=== PATIENT | female | born 1995 | race Caucasian/White ===

== ENCOUNTER 2016-08-16 10:44 | Emergency (ER) | payer OTHER ==
[2016-08-16 11:05] VITALS: BP 125/65; PULSE 73; TEMP 98.1; BMI 25.1
[2016-08-16] MEDS ORDERED: DIPHTH,PERTUSS(ACELL),TET 0.5 ML DISP.SYRIN IM ONE (11:54)
--- NOTE | 2016-08-16 11:57 | PDOC ---
History of Present Illness - General Chief Complaint: Laceration Stated Complaint: LACERATION TO RT EYEBROW Time Seen by Provider: 08/16/16 11:24 - History of Present Illness Initial Comments: 08/16/16 11:54 CHIEF COMPLAINT: lac to eyebrow HISTORY OF PRESENT ILLNESS: 21 yo F with no PMH presents to fast track with laceration to R eyebrow. Patient states a can fell on her head from a cupboard. She denies any LOC or vomiting. Patient does not remember the last time she had a tetanus shot. PAST MEDICAL HISTORY: Denies past medical history FAMILY HISTORY: Denies SOCIAL HISTORY: Denies tobacco, alcohol, illicit drug use. SURGICAL HISTORY: Denies ALLERGIES: No known drug allergies REVIEW OF SYSTEMS General/Constitutional: Denies fever or chills. Denies weakness, weight change. HEENT: Denies change in vision. Denies ear pain or discharge. Denies sore throat. Cardiovascular: Denies chest pain or shortness of breath. Respiratory: Denies cough, wheezing, or hemoptysis. Gastrointestinal: Denies nausea, vomiting, diarrhea or constipation. Denies rectal bleeding. Genitourinary: Denies dysuria, frequency, or change in urination. Musculoskeletal: Denies joint or muscle swelling or pain. Denies neck or back pain. Skin and breasts: Lac to R forehead. Denies rash or easy bruising. PHYSICAL EXAM General Appearance: Well-appearing, appropriately dressed. No apparent distress , no intoxication. HEENT: EOMI, PERRLA, normal ENT inspection. No conjunctival pallor. No photophobia, scleral icterus. Respiratory/Chest: Lungs CTAB. Cardiovascular: RRR. S1, S2. Lymphatic: No adenopathy, tenderness. Musculoskeletal/Extremities: Normal inspection. FROM of all extremities, normal capillary refill. Pelvis Stable. No CVA tenderness. No tenderness to extremities, pedal edema, swelling, erythema or deformity. Integumentary: 2 cm lac to R forehed. Appropriate color, dry, warm. No cyanosis , erythema, jaundice or rash Neurologic: marketing coordinator II-XII intact. Fully oriented, alert. Appropriate mood/affect. Motor strength 5/5. No appreciable EOM palsy, facial droop or sensory deficit. Past History - Past Medical History Allergies/Adverse Reactions: Allergies Allergy/AdvReac Type Severity Reaction Status Date / Time No Known Allergies Allergy Verified 08/16/16 11:02 Home Medications: Ambulatory Orders NK [No Known Home Medication] 08/16/16 Anemia: Yes - Psycho/Social/Smoking Cessation Hx Suicidal Ideation: No Smoking History: Never smoked *Physical Exam - Vital Signs Last Vital Signs Temp Pulse Resp BP Pulse Ox 98.1 F 73 19 125/65 99 08/16/16 11:02 08/16/16 11:02 08/16/16 11:02 08/16/16 11:02 08/16/16 11:02 Procedures - Consent Consent obtained: Verbal - Laceration/Wound Repair Right Lateral Frontal Wound Length: to 2.5 cm Wound Explored: clean Wound's Depth, Shape: linear Irrigated w/ Saline: Yes Betadine Prep: Yes Anesthesia: 1% Lidocaine Amount of Anesthetic (ccs): 3 Wound Repaired With: Sutures Suture Size/Type: 6:0 Number of Sutures: 3 Sterile Dressing Applied: Yes (bacitracin, bandaid) *DC/Admit/Observation/Transfer Diagnosis at time of Disposition: Laceration of eyebrow Qualifiers: Encounter type: initial encounter Laterality: right Qualified Code(s): S01.111A - Laceration without foreign body of right eyelid and periocular area, initial encounter - Discharge Dispostion Disposition: HOME Condition at time of disposition: Stable Admit: No - Referrals Referrals: Mary Ann Rodriguez MD [Primary Care Provider] - - Patient Instructions Printed Discharge Instructions: DI for Laceration Repair Additional Instructions: Please keep the area of laceration repair clean and dry for the next 24 hours; afterwards you may wash with mild soap and water. Please return in 5 days for suture removal. If you experience any redness, warmth, swelling, or streaking from the site of injury or you develop any fever, nausea, vomiting or any new or worsening symptoms, please return to the ER.
== END 2016-08-16 12:06 | disposition home or self-care (01) ==
LOC: JERFT 10:44
PROC: 0HQ1XZZ Repair Face Skin, External Approach (ICD-10-PCS; principal; 2016-08-16)
PROC: 3E0234Z Introduction of Serum, Toxoid and Vaccine into Muscle, Percutaneous Approach (ICD-10-PCS; 2016-08-16)
DX: S01.111A Laceration without foreign body of right eyelid and periocular area, initial encounter (principal); W20.8XXA Other cause of strike by thrown, projected or falling object, initial encounter; Y93.9 Activity, unspecified; Y92.9 Unspecified place or not applicable
CPT/HCPCS: 12011-25; 90471; 90715; 99282-25

== ENCOUNTER 2016-08-21 12:29 | Emergency (ER) | payer OTHER ==
[2016-08-21 12:34] VITALS: BP 123/63; PULSE 64; TEMP 97.6; BMI 21.7
--- NOTE | 2016-08-21 12:57 | PDOC ---
Suture Removal/Wound Check HPI - History of Present Illness Chief Complaint: Suture/Staple Removal (other) Stated Complaint: STAPLLEREMOVAL Time Seen by Provider: 08/21/16 12:42 History Source: Yes: Patient Exam Limitations: Yes: No Limitations Treated at: [facility] ED Date of Last ED visit: 08/16/16 - Previous ED Treatment Type of procedure performed on last visit: Yes: Laceration Repair Tetanus Immunization: Yes: Given at last ED visit Antibiotics Prescribed: No Past History - Past Medical History Allergies/Adverse Reactions: Allergies No Known Allergies Allergy (Verified 08/21/16 12:30) Home Medications: Ambulatory Orders NK [No Known Home Medication] 08/16/16 General: Yes: no pertinent history - Immunization History Tetanus Status: Unknown - Social History Smoking Status: Never smoked Suture Removal/Wound Check PE - Physical Exam Laceration/Wound Check Symptoms: reports: None Comments: 08/21/16 13:27 Rt. lateral eyebrow patient was seen here on 08/16/2016, here for suture removal. Current Severity Level: None Maximum Severity Level: None Location of Laceration/Wound: right: Face (rt. lateral eyebrow area) *Review of Systems - Review of Systems Able to Perform ROS?: Yes Integumentary: Yes: Other (3 sutures rt. lateral eyebrow area) Procedures - Consent Consent obtained: From Patient - Additional Procedures Progress: 08/21/16 13:28 Removed 3 interrupted sutures from right eyebrow area wound edges well approximated no signs of infection area cleansed with Betadine and normal saline 0.9% Medical Decision Making - Medical Decision Making 08/21/16 13:29 suture removal right lateral eyebrow area *DC/Admit/Observation/Transfer Diagnosis at time of Disposition: Visit for suture removal - Discharge Dispostion Disposition: HOME Condition at time of disposition: Stable - Patient Instructions Additional Instructions: Continue to cleanse wound with antibacterial soap and water pat dry and apply bacitracin ointment twice daily until scab falls off Patient voiced understanding of discharge instructions and all questions were answered
== END 2016-08-21 13:34 | disposition home or self-care (01) ==
LOC: JERFT 12:29
DX: Z48.02 Encounter for removal of sutures (principal)
CPT/HCPCS: 99281-25

== ENCOUNTER 2017-04-15 20:43 | Emergency (ER) | payer OTHER ==
[2017-04-15 20:48] VITALS: BMI 25.9
--- NOTE | 2017-04-15 21:08 | PDOC ---
*Physical Exam - Vital Signs Last Vital Signs Temp Pulse Resp BP Pulse Ox 98.9 F 90 18 118/74 100 04/15/17 20:44 04/15/17 20:44 04/15/17 20:44 04/15/17 20:44 04/15/17 20:44 Medical Decision Making - Medical Decision Making 04/15/17 21:07 21y F 9weeks gestation presenting nausae/vomiting for 3 weeks. pt staets she went to an outside hospital for the sme complaint and she was given zofran, she stestes it does help when she uses it, but she only has 2 left (she only was given 4 pills). pt adriana kavinелена bbdominal pain, fever/chills, back pain, dysuria, diarrhea, melena, cough, cp, sob. on exam the pt appears well, abd is soft nontender. will give antiemetic, fluids will ck ua, labs suspect mild hyperemeiss gravidarum will reassess anticipate dc with program engineer fu *DC/Admit/Observation/Transfer - Referrals Referrals: Angelita Felix MD [Primary Care Provider] - - Patient Instructions - Post Discharge Activity
[2017-04-15] MEDS ORDERED: SODIUM CHLORIDE 1,000 ML IV STA (21:14)
--- NOTE | 2017-04-15 21:14 | PDOC ---
History of Present Illness - General Chief Complaint: Vomiting Blood Stated Complaint: VOMITING Time Seen by Provider: 04/15/17 20:57 History Source: Patient Exam Limitations: No Limitations - History of Present Illness Initial Comments: 04/15/17 21:18 Jill is a 21 yo female with PMH GERD and anemia presenting at 9 weeks gestation with dizziness, nausea and vomiting for 4 days. She reports that she had reflux and vomiting earlier in her and was given pepcid and zofran. However, she has been unable to keep down the medications as well as food and water for the past 4 days. She reports that the vomit was tinged with blood today and she had one episode of blood in her urine without painful urination. She denies fever, [place], SOB, angina, abdominal pain, vaginal bleeding/ discharge, edema, calf swelling/tenderness, dysuria. She is taking vitamins, denies alcohol, tobacco, recent medication use. Timing/Duration: other (4 days) Severity: mild Modifying Factors: worse with: eating, other (smelling food worsens N/V) Associated Symptoms: reports: nausea/vomiting. denies: chest pain, fever/chills , headaches, shortness of breath Aspirin Received prior to arrival: Yes: no aspirin today Beta Sam Contraindications(Core Measure): Yes: Not Prescribed Past History - Past Medical History Allergies/Adverse Reactions: Allergies Allergy/AdvReac Type Severity Reaction Status Date / Time No Known Allergies Allergy Verified 04/15/17 20:49 Home Medications: Ambulatory Orders Calcium Carbonate [Tums] 200 mg PO TID #30 tab.chew 04/16/17 Nitrofurantoin Monohyd/M-Cryst [Macrobid -] 100 mg PO BID #14 capsule 04/16/17 Ondansetron [Zofran Odt -] 4 mg SL TID #10 od.tablet 04/16/17 Anemia: Yes COPD: No - Reproductive History Is Patient Now?: Yes (9 weeks gestation) (#): 1 Para: 0 - Suicide/Smoking/Psychosocial Hx Smoking History: Never smoked Have you smoked in the past 12 months: No Information on smoking cessation initiated: No Hx Alcohol Use: No Drug/Substance Use Hx: No Substance Use Type: None Review of Systems - Review of Systems Constitutional: No: Chills, Fever, Loss of Appetite HEENTM: Yes: Other (reflux) Respiratory: No: Cough, Orthopnea, Shortness of Breath Cardiac (ROS): Yes: Lightheadedness. No: Chest Pain, Edema, Palpitations ABD/GI: Yes: Nausea, Poor Fluid Intake, Vomiting. No: Diarrhea, Abdominal cramping : Yes: Hematuria, Incontinence (1 episode today). No: Burning, Dysuria, Discharge, Flank Pain, Pain Neurological: Yes: Dizziness. No: Headache *Physical Exam - Vital Signs Last Vital Signs Temp Pulse Resp BP Pulse Ox 98.9 F 90 18 118/74 100 04/15/17 20:44 04/15/17 20:44 04/15/17 20:44 04/15/17 20:44 04/15/17 20:44 - Physical Exam General Appearance: Yes: Nourished, Appropriately Dressed, Other (Laying comfortably in exam bed, AAOx3. Not using accessory muscles to breath). No: Apparent Distress HEENT: positive: Normal ENT Inspection Neck: positive: Trachea midline. negative: Stridor Respiratory/Chest: positive: Lungs Clear, Normal Breath Sounds. negative: Chest Tender, Respiratory Distress, Accessory Muscle Use, Labored Respiration, Crackles, Rales, Rhonchi, Stridor, Wheezing Cardiovascular: positive: Regular Rhythm, Regular Rate, S1, S2 (present). negative: Edema, Murmur Gastrointestinal/Abdominal: positive: Normal Bowel Sounds, Flat, Soft. negative : Tender, Pulsatile Mass, Distended, Guarding, Tenderness, Mass Musculoskeletal: negative: CVA Tenderness (L) Extremity: positive: Normal Capillary Refill, Normal Inspection, Normal Range of Motion. negative: Swelling, Calf Tenderness Integumentary: positive: Normal Color, Dry, Warm. negative: Cold Neurologic: positive: management associate II-XII NML intact, Fully Oriented, Alert, Normal Mood/ Affect, Normal Response, Motor Strength 5/5. negative: Sensory Deficit ED Treatment Course - LABORATORY CBC & Chemistry Diagram: 04/15/17 21:40 04/15/17 21:40 Medical Decision Making - Medical Decision Making 04/15/17 23:01 Pt. is a 21 y/o F , approximately 9 weeks preganant (LMP 02/07/17) who presents to the ED with n/v 04/16/17 00:53 Transvaginal ultrasound shows a single IUP, heart rate of 138. Left and right ovaries appear normal. We will discharge home at this time. Patient reports relief of her nausea still admits to some burning however explained that this could take a little while to resolve itself. Patient instructed to use Tums at home. She may also use Zofran as needed for nausea and vomiting. Referral for PHOTOGRAPHER SCIENTIFIC given. Given hematuria in the urine and white blood cells present in the urine we'll treat for asymptomatic bacteriuria at this time. 04/16/17 07:00 *DC/Admit/Observation/Transfer Diagnosis at time of Disposition: Hyperemesis - Discharge Dispostion Disposition: HOME Condition at time of disposition: Good Admit: No - Prescriptions Prescriptions: Calcium Carbonate [Tums] 200 mg PO TID #30 tab.chew Nitrofurantoin Monohyd/M-Cryst [Macrobid -] 100 mg PO BID #14 capsule Ondansetron [Zofran Odt -] 4 mg SL TID #10 od.tablet - Referrals Referrals: Angelita Felix MD [Primary Care Provider] - Carlene Arndt MD [Staff Physician] - - Patient Instructions Printed Discharge Instructions: DI for Hyperemesis Gravidarum Additional Instructions: Your lab work was normal today. Your ultrasound showed a single live with a heart rate of 138. Your prescribed Zofran as needed for your nausea. Please take Tums as needed for acid reflux. Please make an appointment with an PHOTOGRAPHER SCIENTIFIC for further management of your and symptoms related to your . A referral has been provided for you. Your also being treated for a presumed urinary tract infection. Please take the antibiotics as prescribed. Drink plenty of fluids. Return to the emergency department if you have worsening nausea, vomiting, lightheadedness, dizziness or any changes in your symptoms. - Post Discharge Activity
[2017-04-15] MEDS ORDERED: METOCLOPRAMIDE HCL INJECTION 10 MG/2 ML VIAL IVPB ONE (21:16)
[2017-04-15] MEDS ORDERED: FAMOTIDINE IV 20 MG/12 ML VIAL IVPB ONE (21:16)
[2017-04-15] MEDS ORDERED: METOCLOPRAMIDE HCL INJECTION 10 MG/2 ML VIAL ONE (21:43)
[2017-04-15] MEDS ORDERED: FAMOTIDINE 20 MG/50 ML IVPB 20 MG/50 ML MG IVPB ONE (21:43)
[2017-04-15 21:47] LABS: BASO % 0.4 % (0-2.0); EOS % 0.4 % (0-4.5); HEMATOCRIT 39.8 % (32.4-45.2); HEMOGLOBIN 13.2 GM/dL (10.7-15.3); LYMPH % 16.7 % (8-40); MCH 28.2 pg (25.7-33.7); MCHC 33.1 g/dl (32.0-36.0); MEAN CELL VOLUME 85.4 fl (80-96); MEAN PLT VOLUME 9.8 fl (7.5-11.1); MONO % 6.4 % (3.8-10.2); NEUT % 76.1 % (42.8-82.8); PLATELET COUNT 195 K/MM3 (134-434); RBC 4.66 M/mm3 (3.60-5.2); RDW 12.5 % (11.6-15.6); WHITE BLOOD COUNT 8.7 K/mm3 (4.0-10.0)
[2017-04-15 21:48] LABS: URINE APPEARANCE CLOUDY; URINE BILIRUBIN NEGATIVE (NEGATIVE); URINE BLOOD NEGATIVE (NEGATIVE); URINE COLOR AMBER; URINE GLUCOSE (UA) 1+ (NEGATIVE); URINE KETONE 2+ (NEGATIVE); URINE LEUK ESTERASE TRACE (NEGATIVE); URINE NITRITE NEGATIVE (NEGATIVE)
[2017-04-15 21:49] LABS: URINE PROTEIN 1+ (NEGATIVE)
[2017-04-15 21:51] LABS: EPI CELLS RARE /HPF (FEW); URINE BACTERIA RARE /hpf (NONE SEEN); URINE HYALINE CAST 5 /lpf; URINE MUCUS MANY
[2017-04-15 22:15] LABS: ALBUMIN 4.1 g/dl (3.4-5.0); ANION GAP 9 (8-16); BILIRUBIN,TOTAL 0.4 mg/dL (0.2-1.0); BLOOD UREA NITROGEN 10 mg/dL (7-18); CALCIUM 8.9 mg/dL (8.5-10.1); CHLORIDE 104 mmol/L (98-107); CO2 24 mmol/L (21-32); CREATININE 0.6 mg/dL (0.55-1.02); GLUCOSE,RANDOM 90 mg/dL (74-106); POTASSIUM 3.8 mmol/L (3.5-5.1); SGOT/AST 17 U/L (15-37); SGPT/ALT 40 U/L (12-78); SODIUM 137 mmol/L (136-145); TOT PROT 7.7 g/dl (6.4-8.2)
[2017-04-15 22:18] LABS: ALK PHOS 78 U/L (45-117)
[2017-04-16 01:20] VITALS: BP 117/69; PULSE 79; TEMP 98.4
== END 2017-04-16 01:20 | disposition home or self-care (01) ==
LOC: JER 20:43
PROC: 3E033GC Introduction of Other Therapeutic Substance into Peripheral Vein, Percutaneous Approach (ICD-10-PCS; principal; 2017-04-15)
PROC: 3E033GC Introduction of Other Therapeutic Substance into Peripheral Vein, Percutaneous Approach (ICD-10-PCS; 2017-04-15)
PROC: 3E033GC Introduction of Other Therapeutic Substance into Peripheral Vein, Percutaneous Approach (ICD-10-PCS; 2017-04-15)
DX: O26.891 Other specified pregnancy related conditions, first trimester (principal); O21.0 Mild hyperemesis gravidarum; Z3A.09 9 weeks gestation of pregnancy
CPT/HCPCS: 36415; 76817-TC; 80053; 81003; 81015; 84702; 85025; 86850; 86900; 86901; 87086; 96374; 96375; 99282-25

== ENCOUNTER 2017-11-08 13:09 | Inpatient (IN) | payer OTHER ==
[2017-11-08] MEDS ORDERED: CITRIC ACID/SODIUM CITRATE 30 ML UNIT-DOSE CUP PO ONE (13:25)
[2017-11-08] MEDS ORDERED: ELECTROLYTE-148 SOLN 1,000 ML IV SCH ×2 (13:25→13:55)
[2017-11-08 14:15] LABS: ALK PHOS 183 U/L (45-117); ANION GAP 13 (8-16); BILIRUBIN,TOTAL 0.3 mg/dL (0.2-1.0); BLOOD UREA NITROGEN 6 mg/dL (7-18); CALCIUM 8.8 mg/dL (8.5-10.1); CHLORIDE 105 mmol/L (98-107); CO2 20 mmol/L (21-32); CREATININE 0.5 mg/dL (0.55-1.02); GLUCOSE,RANDOM 71 mg/dL (74-106); POTASSIUM 3.9 mmol/L (3.5-5.1); SGOT/AST 16 U/L (15-37); SGPT/ALT 15 U/L (12-78); SODIUM 138 mmol/L (136-145); TOT PROT 6.6 g/dl (6.4-8.2)
[2017-11-08 14:22] VITALS: BMI 31.1
[2017-11-08] MEDS ORDERED: OXYTOCIN 20 UNITS in 0.9% NS 20 UNIT/1,000 ML INFUS.BAG IV ONE (15:08)
--- NOTE | 2017-11-08 15:09 | HP ---
Past Medical History - Primary Care Physician PCP:: Hunter Giron - Admission Chief Complaint: 39 weeks, hx of pelvic fx History of Present Illness: 22 yo f 39 weeks, with hx of pelvic fracture admitted for c/s , risks of c /s has discussed with patient, cx clp , vx -3 mi, fhr cat 1, no contraction History Source: Patient Limitations to Obtaining History: Language Barrier - Past Medical History ...: 1 ...Para: 0 ...Term: 0 ...: 0 ...Spon : 0 ...Induced : 0 ...Multiple Gestation: 0 ...LMP: 02/07/17 ... Weeks Gestation by Dates: 39.1 ...EDC by Dates: 11/14/17 ...EDC by Sono: 11/21/17 - Past Surgical History Hx Myomectomy: No Hx Transabdominal Cerclage: No - Smoking History Smoking history: Never smoked Have you smoked in the past 12 months: No - Alcohol/Substance Use Hx Alcohol Use: No - Social History Usual Living Arrangement: Yes: With Spouse History of Recent Travel: No Home Medications - Allergies Allergies/Adverse Reactions: Allergies Allergy/AdvReac Type Severity Reaction Status Date / Time No Known Allergies Allergy Verified 11/08/17 13:31 - Home Medications Home Medications: Ambulatory Orders Ferrous Sulfate 325 mg PO BID 11/08/17 Pnv No.95/Ferrous Fum/Folic AC [ Vitamin Tablet] 1 each PO DAILY Review of Systems - Review of Systems Constitutional: reports: No Symptoms Eyes: reports: No Symptoms, Floaters Neck: reports: No Symptoms Cardiovascular: reports: No Symptoms Respiratory: reports: No Symptoms Gastrointestinal: reports: No Symptoms Genitourinary: reports: No Symptoms Breasts: reports: No Symptoms Reported Musculoskeletal: reports: Back Pain, Extremity Pain Integumentary: reports: No Symptoms Neurological: reports: No Symptoms Endocrine: reports: No Symptoms Hematology/Lymphatic: reports: No Symptoms Psychiatric: reports: No Symptoms Physical Exam - Maternity Vital Signs: Vital Signs Temperature 98.0 F 11/08/17 13:09 Pulse Rate 94 H 11/08/17 13:09 Respiratory Rate 18 11/08/17 13:09 Blood Pressure 109/63 11/08/17 13:09 O2 Sat by Pulse Oximetry (%) Constitutional: Yes: Well Nourished, No Distress, Calm Eyes: Yes: WNL, Conjunctiva Clear, EOM Intact HENT: Yes: WNL, Atraumatic, Normocephalic Neck: Yes: WNL, Supple, Trachea Midline Cardiovascular: Yes: WNL, Regular Rate and Rhythm Breast(s): Yes: WNL - Abdominal Exam/OB Fundal Height: 40 Number of Fetuses: Single Presentation: Vertex Contractions: No Regularity: Irritability Intensity: Unaware Monitor Mode: External Heart Rate Location: [facility] Category: I Accelerations: Uniform Decelerations: None - Vaginal Exam/OB Vaginal Bleediing: No Speculum Exam: No Dilatation (cm): closed Effacement (%): o Amniotic Membrane Status: Intact Presentation: Vertex/Position Station: -3 - Physical Exam Musculoskeletal: Yes: Back Pain Extremities: Yes: WNL Edema: Yes Edema: LLE: 1+, RLE: 1+ ...Motor Strength: WNL Psychiatric: Yes: WNL - Labs Lab Results: CBC, BMP 11/08/17 13:20 Hemorrhage Risk Assessment - Risk Factors Medium Risk Factors: Yes: None High Risk Factors: Yes: None Risk Score: 1 Risk Level: Medium Risk Problem List - Problems (1) with 39 completed weeks gestation Code(s): Z3A.39 - 39 WEEKS GESTATION OF (2) Pelvic fracture Code(s): S32.9XXA - FRACTURE OF UNSP PARTS OF LUMBOSACRAL SPINE AND PELVIS, INIT Qualifiers: Sublocation of pubis: other portion of pubis Fracture type: open Assessment/Plan c/s rba discussed
[2017-11-08] MEDS ORDERED: BUPIVACAINE 0.75% IN DEXTROSE/PF 2ML AMPULE NR ONE (15:17)
[2017-11-08] MEDS ORDERED: morphine SULFATE/Preservative Free 0.5 MG/ML (1cc Syringe) ONE (15:17)
[2017-11-08] MEDS ORDERED: OXYTOCIN 10 UNITS/ML VIAL ONE (15:40)
[2017-11-08] MEDS ORDERED: KETOROLAC TROMETHAMINE 30 MG/1 ML VIAL ONE (15:57)
[2017-11-08] MEDS ORDERED: PHENYLEPHRINE HCL 10 MG/1 ML SINGLE DOSE VIAL ONE (15:57)
[2017-11-08] MEDS ORDERED: METHYLERGONOVINE MALEATE 0.2 MG/1 ML AMP IM PRN (16:18)
[2017-11-08] MEDS ORDERED: WITCH HAZEL 50% (TUCKS) 40 PAD/JAR PAD TP PRN (16:18)
[2017-11-08] MEDS ORDERED: oxyCODONE HCL 5 MG TABLET PO PRN (16:18)
[2017-11-08] MEDS ORDERED: BENZOCAINE 20% 57 GM BOTTLE TP PRN (16:18)
[2017-11-08] MEDS ORDERED: BENZOCAINE 28 GM HEMORRHOIDAL OINTMENT PR PRN (16:18)
[2017-11-08] MEDS ORDERED: diphenhydrAMINE HCL 25 MG CAPSULE (FP) PO PRN (16:18)
[2017-11-08] MEDS ORDERED: IBUPROFEN 800 MG/8 ML IJ IVPB PRN (16:18)
[2017-11-08] MEDS ORDERED: ONDANSETRON 4 MG/2 ML VIAL IVPUSH PRN (16:28)
[2017-11-08] MEDS ORDERED: DEXTROSE 5%-LACTATED RINGERS 1,000 ML IV SCH (16:30)
[2017-11-08] MEDS ORDERED: OXYTOCIN 20 UNITS in 0.9% NS 20 UNIT/1,000 ML INFUS.BAG IV SCH (16:30)
[2017-11-08] MEDS ORDERED: CEFAZOLIN 1 GM in DEXTROSE 5%-WATER - 50 ML IVPB SCH (18:00)
[2017-11-08] MEDS ORDERED: DEXTROSE 5%-WATER - 50 ML IVPB ONE (23:44)
[2017-11-08] MEDS ORDERED: ceFAZolin SODIUM 1 GM VIAL ONE (23:44)
[2017-11-08] MEDS: CEFAZOLIN 1 GM in DEXTROSE 5%-WATER - 50 ML IVPB SCH (23:47)
[2017-11-09] MEDS ORDERED: ceFAZolin SODIUM 1 GM VIAL ONE (07:40)
[2017-11-09] MEDS ORDERED: DEXTROSE 5%-WATER - 50 ML IVPB ONE (07:40)
[2017-11-09] MEDS: CEFAZOLIN 1 GM in DEXTROSE 5%-WATER - 50 ML IVPB SCH (07:45)
[2017-11-09 07:55] LABS: BASO % 0.4 % (0-2.0); EOS % 0.8 % (0-4.5); HEMATOCRIT 37.4 % (32.4-45.2); HEMOGLOBIN 12.5 GM/dL (10.7-15.3); LYMPH % 11.8 % (8-40); MCH 31.5 pg (25.7-33.7); MCHC 33.4 g/dl (32.0-36.0); MEAN CELL VOLUME 94.4 fl (80-96); MEAN PLT VOLUME 9.3 fl (7.5-11.1); MONO % 8.9 % (3.8-10.2); NEUT % 78.1 % (42.8-82.8); PLATELET COUNT 186 K/MM3 (134-434); RBC 3.96 M/mm3 (3.60-5.2); RDW 13.4 % (11.6-15.6); WHITE BLOOD COUNT 10.9 K/mm3 (4.0-10.0)
--- NOTE | 2017-11-09 08:33 | PN ---
Progress Note (short form) - Note Progress Note: pod 1 no c/o, no excess vaginal bleeding CBC, BMP 11/09/17 07:00 11/08/17 13:20 Last Vital Signs Temp Pulse Resp BP Pulse Ox 98.4 F 64 20 108/72 99 11/09/17 06:00 11/09/17 06:00 11/09/17 07:00 11/09/17 06:00 11/08/17 17:46 abdomen soft, no distension, no cva incision dry, clean no calf tenderness plan ambualte, advance diet Problem List - Problems (1) with 39 completed weeks gestation Code(s): Z3A.39 - 39 WEEKS GESTATION OF (2) Pelvic fracture Code(s): S32.9XXA - FRACTURE OF UNSP PARTS OF LUMBOSACRAL SPINE AND PELVIS, INIT Qualifiers: Sublocation of pubis: other portion of pubis Fracture type: open
[2017-11-09] MEDS: IBUPROFEN 600 MG TABLET (FP) PO PRN ×3 (09:17→20:17)
[2017-11-09] MEDS: SIMETHICONE 80 MG TAB.CHEW (FP) PO PRN ×3 (09:17→20:16)
[2017-11-09] MEDS: ENOXAPARIN NA (PORCINE) 40 MG/0.4 ML DISP.SYRIN SQ SCH (09:18)
[2017-11-09] MEDS: ACETAMINOPHEN 325 MG TABLET (FP) PO PRN ×3 (09:18→20:16)
--- NOTE | 2017-11-09 11:51 | PN ---
Progress Note (short form) - Note Progress Note: Anesthesia POD#1 S/P under spinal anesthesia with Duramorph VSS,out of bed to chair,no N/V,pain is under control. No weakness in extremities. Selena Rock MD.
[2017-11-09] MEDS ORDERED: BISACODYL 10 MG SUPP.RECT RC PRN (16:19)
[2017-11-10] MEDS: ACETAMINOPHEN 325 MG TABLET (FP) PO PRN (05:42)
[2017-11-10] MEDS: SIMETHICONE 80 MG TAB.CHEW (FP) PO PRN ×3 (05:43→22:38)
[2017-11-10] MEDS: IBUPROFEN 600 MG TABLET (FP) PO PRN ×3 (05:43→22:39)
--- NOTE | 2017-11-10 07:30 | PN ---
Post Progress Note - Subjective Subjective: c/o pain scale 4/10 voiding without difficulty bm not done yet Post Day: 2 Type of Delivery: Primary C/S Vital Signs: Vital Signs Temperature 98.5 F 11/09/17 22:00 Pulse Rate 74 11/09/17 22:00 Respiratory Rate 18 11/09/17 22:00 Blood Pressure 112/60 11/09/17 22:00 O2 Sat by Pulse Oximetry (%) 99 11/08/17 17:46 Breast Exam: Yes: Soft. No: Engorged Uterus: Yes: Fundus Firm, Fundus below umbilicus, Non-tender Incision: Yes: Dressing dry and intact (to be changed ). No: Redness, Oozing Abdomen/GI: Yes: Abdomen soft (bs active ), Passing flatus (bm not done ), Tolerating PO (diet ). No: Abdominal Distention, Tender Lochia: Yes: Rubra Lochia, amount: Moderate Extremities: Yes: Calves non-tender, Edema Perineum: Yes: Intact Activity: Ambulating - Labs Labs: CBC WBC 10.9 K/mm3 (4.0-10.0) H 11/09/17 07:00 RBC 3.96 M/mm3 (3.60-5.2) 11/09/17 07:00 Hgb 12.5 GM/dL (10.7-15.3) 11/09/17 07:00 Hct 37.4 % (32.4-45.2) 11/09/17 07:00 MCV 94.4 fl (80-96) 11/09/17 07:00 MCH 31.5 pg (25.7-33.7) 11/09/17 07:00 MCHC 33.4 g/dl (32.0-36.0) 11/09/17 07:00 RDW 13.4 % (11.6-15.6) 11/09/17 07:00 Plt Count 186 K/MM3 (134-434) 11/09/17 07:00 MPV 9.3 fl (7.5-11.1) 11/09/17 07:00 Absolute Neuts (auto) 8.5 # 11/09/17 07:00 Neutrophils % 78.1 % (42.8-82.8) 11/09/17 07:00 Lymphocytes % 11.8 % (8-40) D 11/09/17 07:00 Monocytes % 8.9 % (3.8-10.2) 11/09/17 07:00 Eosinophils % 0.8 % (0-4.5) 11/09/17 07:00 Basophils % 0.4 % (0-2.0) 11/09/17 07:00 Nucleated RBC % 0 % (0-0) 11/09/17 07:00 Problem List - Problems (1) delivery due to maternal disorder, delivered, curr hospitaliz Code(s): O82 - ENCOUNTER FOR DELIVERY WITHOUT INDICATION; O99.89 - OTH DISEASES AND CONDITIONS COMPL PREG/CHLDBRTH (2) Encounter for visit Code(s): Z39.2 - ENCOUNTER FOR ROUTINE FOLLOW-UP Assessment/Plan stable s/p primary c/s day#[address] po care rectal suppository today encourage ambulation , po fluids , deep breathing
[2017-11-10] MEDS: oxyCODONE HCL 5 MG TABLET PO PRN ×2 (09:35→22:38)
[2017-11-10] MEDS: ENOXAPARIN NA (PORCINE) 40 MG/0.4 ML DISP.SYRIN SQ SCH (09:35)
[2017-11-10] MEDS ORDERED: SENNOSIDES/DOCUSATE COMBO (SENNA PLUS) TABLET (UD) PO PRN (22:00)
[2017-11-11 07:54] LABS: BASO % 0.4 % (0-2.0); EOS % 1.9 % (0-4.5); HEMATOCRIT 35.3 % (32.4-45.2); LYMPH % 21.7 % (8-40); MCH 31.9 pg (25.7-33.7); MEAN PLT VOLUME 9.1 fl (7.5-11.1); MONO % 10.1 % (3.8-10.2); NEUT % 65.9 % (42.8-82.8); PLATELET COUNT 186 K/MM3 (134-434); RBC 3.76 M/mm3 (3.60-5.2); RDW 13.5 % (11.6-15.6); WHITE BLOOD COUNT 7.9 K/mm3 (4.0-10.0)
[2017-11-11] MEDS: oxyCODONE HCL 5 MG TABLET PO PRN (09:05)
[2017-11-11] MEDS: SIMETHICONE 80 MG TAB.CHEW (FP) PO PRN ×2 (09:05→20:05)
[2017-11-11] MEDS: ENOXAPARIN NA (PORCINE) 40 MG/0.4 ML DISP.SYRIN SQ SCH (09:06)
[2017-11-11] MEDS: IBUPROFEN 600 MG TABLET (FP) PO PRN ×2 (09:06→20:06)
--- NOTE | 2017-11-11 11:49 | PN ---
Post Progress Note - Subjective Subjective: 22 yo Para 1 status post primary , seen and evaluated. She's out of bed to chair. Doing well Post Day: 3 Type of Delivery: Primary C/S Vital Signs: Vital Signs Temperature 97.8 F 11/11/17 07:55 Pulse Rate 55 L 11/11/17 07:55 Respiratory Rate 20 11/11/17 07:55 Blood Pressure 120/79 11/11/17 07:55 O2 Sat by Pulse Oximetry (%) 99 11/08/17 17:46 Breast Exam: Yes: Soft Uterus: Yes: Fundus Firm Incision: Yes: [place] intact Abdomen/GI: Yes: Abdomen soft, Tolerating PO Lochia: Yes: Rubra Lochia, amount: Small Extremities: Yes: Calves non-tender Perineum: Yes: Intact Activity: Ambulating - Labs Labs: CBC WBC 7.9 K/mm3 (4.0-10.0) 11/11/17 06:30 RBC 3.76 M/mm3 (3.60-5.2) 11/11/17 06:30 Hgb 12.0 GM/dL (10.7-15.3) 11/11/17 06:30 Hct 35.3 % (32.4-45.2) 11/11/17 06:30 MCV 94.0 fl (80-96) 11/11/17 06:30 MCH 31.9 pg (25.7-33.7) 11/11/17 06:30 MCHC 34.0 g/dl (32.0-36.0) 11/11/17 06:30 RDW 13.5 % (11.6-15.6) 11/11/17 06:30 Plt Count 186 K/MM3 (134-434) 11/11/17 06:30 MPV 9.1 fl (7.5-11.1) 11/11/17 06:30 Absolute Neuts (auto) 5.2 # 11/11/17 06:30 Neutrophils % 65.9 % (42.8-82.8) 11/11/17 06:30 Lymphocytes % 21.7 % (8-40) D 11/11/17 06:30 Monocytes % 10.1 % (3.8-10.2) 11/11/17 06:30 Eosinophils % 1.9 % (0-4.5) D 11/11/17 06:30 Basophils % 0.4 % (0-2.0) 11/11/17 06:30 Nucleated RBC % 0 % (0-0) 11/11/17 06:30 Assessment/Plan Status post Stable Continue routine post op care
[2017-11-11] MEDS: ACETAMINOPHEN 325 MG TABLET (FP) PO PRN (20:05)
[2017-11-12] MEDS: ENOXAPARIN NA (PORCINE) 40 MG/0.4 ML DISP.SYRIN SQ SCH (09:13)
[2017-11-12 11:21] VITALS: BP 126/73; PULSE 57; TEMP 98
--- NOTE | 2017-11-12 12:38 | PATH ---
Surgical Pathology Report Patient Name: DEEPIKA BARR Med. Rec. #: [id number] /Age/Gender: 1995 (Age: 22) / F Account: [id number] Location: [facility] OBS/LAB COURIER Taken: 11/08/2017 Received: 11/09/2017 Reported: 11/12/2017 Physicians: Hunter Giron M.D. 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 Electronically Signed Alanna Springer M.D. Gross Description The specimen is received fresh labeled placenta and is a 454 gram, 14.0 x 14.0 x 3.3 cm. placenta with attached membranes and umbilical cord. The attached membranes are ibarra, translucent with focal opacities and insert marginally. The umbilical cord measures 35 cm. in length and averages 1 cm. in diameter. The cord inserts eccentrically, 5.5 cm. to the nearest margin. No true knots or strictures are identified. Cut surface of the umbilical cord reveals 3 vessels. The surface is romano-blue with minimal fibrin deposition and appropriate caliber vessels. The maternal surface is red-brown with focal defects. Sectioning reveals red-brown, spongy parenchyma. No lesions are identified. Sales Service Manager sections are submitted in three cassettes as follows: 1- membrane rolls and umbilical cord; 2-3- full thickness sections of placenta. /11/09/2017 [facility]/11/09/2017
--- NOTE | 2017-11-12 15:44 | DS ---
Physical Exam-FIBERGLASSER Vital Signs: Vital Signs Temperature 98 F 11/12/17 10:00 Pulse Rate 57 L 11/12/17 10:00 Respiratory Rate 20 11/12/17 10:00 Blood Pressure 126/73 11/12/17 10:00 O2 Sat by Pulse Oximetry (%) 99 11/08/17 17:46 Constitutional: Yes: Well Nourished Eyes: Yes: Conjunctiva Clear HENT: Yes: Atraumatic Neck: Yes: Supple Cardiovascular: Yes: Regular Rate and Rhythm Respiratory: Yes: Regular Gastrointestinal: Yes: Normal Bowel Sounds Cervix: Yes: Normal Uterus: Yes: Normal Breast(s): Yes: WNL Extremities: Yes: WNL Wound/Incision: Yes: Clean/Dry, Well Approximated, Holli Intact Neurological: Yes: Alert, Oriented ...Motor Strength: WNL Psychiatric: Yes: Alert, Oriented Labs: CBC, BMP 11/11/17 06:30 11/08/17 13:20 Delivery - Delivery Type of Anesthesia: Spinal Episiotomy/Laceration: None EBL (cc): 500 Delivery, Single - Stages of Labor Date of Delivery: 11/08/17 Time of Delivery: 15:45 Time Placenta Delivered: 15:46 - Condition of [place]/Proj Mgr Present: Yes Name: Coco Morrow Gender: Female Weight: 6 lb 12 oz Position: Right, OT Total Hours ROM (Hrs/Mins): 2min - 1 Minute Total Score: 9 5 Minutes Total Score: 9 - Feeding Plan Initial Plan: Elected not to breastfeed exclusively throughout hospitalization Discharge Summary Reason For Visit: Procedures: Principal: Primary Low Transverse Hospital Course: Routine postop care Condition: Good - Instructions Diet, Activity, Other Instructions: regular diet, follow up [facility] care 1 week Referrals: Hunter Giron MD [Staff Physician] - Disposition: HOME - Home Medications Comprehensive Discharge Medication List: Ambulatory Orders Ferrous Sulfate 325 mg PO BID 11/08/17 Pnv No.95/Ferrous Fum/Folic AC [ Vitamin Tablet] 1 each PO DAILY Ibuprofen [Motrin -] 600 mg PO QID #28 tablet 11/12/17
--- NOTE | 2017-11-13 09:45 | OP ---
DATE OF OPERATION: 11/08/2017 PREOPERATIVE DIAGNOSES: , 39 weeks; history of pelvic fracture; request of section. POSTOPERATIVE DIAGNOSES: , 39 weeks; history of pelvic fracture; request of section. PROCEDURE: Primary low-segment transverse section. SURGEON: Frankie Giron MD ABSTRACTOR: HARRIETT Christian ANESTHESIA: Spinal. ESTIMATED BLOOD LOSS: 500 mL OPERATING COURSE: Patient was taken to the operating room. Under adequate spinal anesthesia, abdomen and perineum were prepped and draped. Pfannenstiel abdominal skin incision was made. Abdominal wall was cut layer by layer until peritoneum was exposed and incised. Upon entering the abdominal cavity, lower uterine segment was identified and uterovesical fold of peritoneum established. Bladder was pushed down. Then, a low transverse uterine incision was made. Incision extended laterally. Amniotic sac entered, clear fluid. Head delivered. Nasopharynx was suctioned, and live baby delivered without any difficulty. Placenta was delivered manually. Uterine cavity was cleaned of all remaining tissue. Uterine incision was closed in 2 layers, first layer with 0 Biosyn continuous suture, the second layer with 0 Biosyn imbricating the first layer. Bladder flap was closed with 0 Biosyn continuous suture. Both tubes and ovaries were checked, were normal. No active bleeding was seen. All the lap pads, sponge, and instrument counts were correct. Then, peritoneum was closed with 0 Biosyn continuous suture. Muscles were brought together with interrupted sutures of 0 Biosyn. Fascia was closed with 0 Biosyn continuous suture, subcutaneous fat with interrupted suture of 0 Biosyn, and the skin was closed with nikia. Patient tolerated the procedure well, left the OR in good condition. FRANKIE GIRON M.D. [id number]
== END 2017-11-12 12:40 | disposition home or self-care (01) | DRG 540 ==
LOC: JLDR 13:09 → J3W 17:31
PROVIDERS: ADMIT Obstetrics & Gynecology; ATTEND Obstetrics & Gynecology
PROC: 10D00Z1 Extraction of Products of Conception, Low, Open Approach (ICD-10-PCS; principal; 2017-11-08)
DX: O82 Encounter for cesarean delivery without indication (principal); O99.89 Other specified diseases and conditions complicating pregnancy, childbirth and the puerperium; O41.1230 Chorioamnionitis, third trimester, not applicable or unspecified; Z3A.39 39 weeks gestation of pregnancy; Z37.0 Single live birth
CPT/HCPCS: 36415; 80053; 85025; 86900; 88307-TC

== ENCOUNTER 2018-01-02 10:10 | Inpatient (IN) | payer OTHER ==
--- NOTE | 2018-01-02 10:31 | PDOC ---
History of Present Illness - General History Source: Patient Exam Limitations: No Limitations - History of Present Illness Initial Comments: 01/02/18 12:34 The patient is a 22 year old female(7 weeks ) with a significant PMH of anemia and gallstones who presents to the emergency department with right upper quadrant pain for 2 days. The patient reports that her onset of pain began last night at around 11 p,. She describes her RUQ abdominal pain as constant worsening pain that is 10/10 in severity. She reports some associated nausea with her RUQ pain. The patient reports that she took 3 600mg ibuprofen pills with no apparent relief . she denies any other symptoms. She denies any fever, chills,vomit, diarrhea, constipation or urinary symptoms. She denies any chest pain, shortness of breath, headache and dizziness. The patient denies any other complaints. PCP: Dr. Rodriguez <Óscar Godfrey - Last Filed: 01/02/18 12:33> - General History Source: Patient Exam Limitations: No Limitations <Stacey Coleman - Last Filed: 01/02/18 15:00> - General Chief Complaint: Pain Stated Complaint: UPPER ABDOMINAL PAIN Time Seen by Provider: 01/02/18 10:31 Past History <Óscar Godfrey - Last Filed: 01/02/18 12:33> - Past Medical History Anemia: Yes Asthma: No Cancer: No Cardiac Disorders: No COPD: No Diabetes: No HTN: No Seizures: No Thyroid Disease: No - Reproductive History (#): 1 Para: 0 - Suicide/Smoking/Psychosocial Hx Smoking History: Never smoked Have you smoked in the past 12 months: No Hx Alcohol Use: No Drug/Substance Use Hx: No Substance Use Type: None Hx Substance Use Treatment: No <Stacey Coleman - Last Filed: 01/02/18 15:00> - Past Medical History Allergies/Adverse Reactions: Allergies Allergy/AdvReac Type Severity Reaction Status Date / Time No Known Allergies Allergy Verified 01/02/18 10:16 Home Medications: Ambulatory Orders NK [No Known Home Medication] 01/02/18 Review of Systems - Review of Systems Able to Perform ROS?: Yes Comments:: 01/02/18 12:34 GENERAL/CONSTITUTIONAL: No fever or chills. No weakness. HEAD, EYES, EARS, NOSE AND THROAT: No change in vision. No ear pain or discharge. No sore throat. CARDIOVASCULAR: No chest pain or shortness of breath. RESPIRATORY: No cough, wheezing, or hemoptysis. GASTROINTESTINAL: (+)Right upper quadrant pain, nausea. No vomiting, diarrhea or constipation. GENITOURINARY: No dysuria, frequency, or change in urination. MUSCULOSKELETAL: No joint or muscle swelling or pain. No neck or back pain. SKIN: No rash NEUROLOGIC: No headache, vertigo, loss of consciousness, or change in strength/ sensation. ENDOCRINE: No increased thirst. No abnormal weight change. HEMATOLOGIC/LYMPHATIC: No anemia, easy bleeding, or history of blood clots. ALLERGIC/IMMUNOLOGIC: No hives or skin allergy. <Óscar Godfrey - Last Filed: 01/02/18 12:33> *Physical Exam - Vital Signs Last Vital Signs Temp Pulse Resp BP Pulse Ox 97.8 F 58 L 18 100/61 100 01/02/18 10:13 01/02/18 10:13 01/02/18 10:13 01/02/18 10:13 01/02/18 10:13 - Physical Exam Comments: 01/02/18 12:34 GENERAL: The patient is in no acute distress. HEAD: Normal with no signs of trauma. EYES: PERRLA, EOMI, sclera anicteric, conjunctiva clear. ENT: Ears normal, nares patent, oropharynx clear without exudates. Moist mucous membranes. NECK: Normal range of motion, supple without lymphadenopathy, JVD, or masses. LUNGS: Breath sounds equal, clear to auscultation bilaterally. No wheezes, and no crackles. HEART:Regular rate and rhythm, normal S1 and S2 without murmur, rub or gallop. ABDOMEN: Soft, nontender, normoactive bowel sounds. No guarding, no rebound. No masses palpable. EXTREMITIES: Normal range of motion, no edema. No clubbing or cyanosis. No erythema, or tenderness. NEUROLOGICAL: Cranial nerves II through XII grossly intact. Normal speech. No focal neurological deficits. MUSCULOSKELETAL: Back non-tender to palpation, no CVA tenderness SKIN: Warm, Dry, normal turgor, no rashes or lesions noted. <Óscar Godfrey - Last Filed: 01/02/18 12:33> - Vital Signs Last Vital Signs Temp Pulse Resp BP Pulse Ox 97.8 F 58 L 18 100/61 100 01/02/18 10:13 01/02/18 10:13 01/02/18 10:13 01/02/18 10:13 01/02/18 10:13 <Stacey Coleman - Last Filed: 01/02/18 15:00> ED Treatment Course - LABORATORY CBC & Chemistry Diagram: 01/02/18 11:13 01/02/18 11:13 - ADDITIONAL ORDERS Additional order review: Laboratory Results 01/02/18 01/02/18 01/02/18 11:13 11:13 11:05 Sodium 139 Potassium 4.4 Chloride 105 Carbon Dioxide 25 Anion Gap 9 BUN 10 Creatinine 0.6 Creat Clearance w eGFR > 60 Random Glucose 89 Calcium 8.3 L Total Bilirubin 0.4 AST 214 H ALT 159 H Alkaline Phosphatase 156 H Total Protein 7.2 Albumin 3.6 Total Amylase 39 Lipase 132 Urine Color Yellow Urine Appearance Clear Urine pH 6.0 Ur Specific [place] 1.023 Urine Protein Negative Urine Glucose (UA) Negative Urine Ketones Negative Urine Blood 1+ H Urine Nitrite Negative Urine Bilirubin Negative Urine Urobilinogen Negative Ur Leukocyte Esterase Negative Urine WBC (Auto) 2 Urine RBC (Auto) 8 Ur Epithelial Cells Rare Urine Bacteria Rare Urine HCG, Qual Negative 01/02/18 11:13 RBC 4.29 MCV 87.8 D MCHC 33.5 RDW 12.4 MPV 8.8 Neutrophils % 58.8 Lymphocytes % 30.2 D Monocytes % 9.4 Eosinophils % 0.9 Basophils % 0.7 - Medications Given in the ED: ED Medications Discontinued Medications Generic Name Dose Route Start Last Admin Trade Name [place] PRN Reason Stop Dose Admin Acetaminophen 1,000 mg 01/02/18 10:48 01/02/18 11:13 Ofirmev Injection - IVPB 01/02/18 10:49 1,000 mg ONCE ONE Administration Ondansetron HCl 4 mg 01/02/18 10:48 01/02/18 11:14 Zofran Injection IVPUSH 01/02/18 10:49 4 mg ONCE ONE Administration <Óscar Godfrey - Last Filed: 01/02/18 12:33> - LABORATORY CBC & Chemistry Diagram: 01/02/18 11:13 01/02/18 11:13 <Stacey Coleman - Last Filed: 01/02/18 15:00> Medical Decision Making - Medical Decision Making 22 yo F h/o cholelithiasis Presenting to the ER with a complaint of abdominal pain DD: Biliary colic, cholecystitis 01/02/18 11:37 Laboratory Tests 01/02/18 01/02/18 01/02/18 11:05 11:13 11:13 WBC 6.0 Hgb 12.6 Hct 37.6 Plt Count 250 D Urine Nitrite Negative Ur Leukocyte Esterase Negative Urine HCG, Qual Negative Laboratory Tests 01/02/18 01/02/18 11:13 11:13 Sodium 139 Potassium 4.4 Chloride 105 BUN 10 Creatinine 0.6 Random Glucose 89 AST 214 H ALT 159 H Urine Nitrite Negative Ur Leukocyte Esterase Negative Urine WBC (Auto) 2 Urine RBC (Auto) 8 US pending 01/02/18 12:37 US demonstrates cholelithiasis, no cholecystitis Pain has improved Will discharge to home Follow up with PMD Pt asked to follow up with general surgery for surgical planning Pt asked to return to the ER immediately for fevers, abdominal pain, vomiting, any other concerns or complaints clinical impression: cholelithiasis 01/02/18 12:39 01/02/18 14:[address] Morgan Given LFT abnormality, would recommend MRCP call placed to hospitalist for observation <Stacey Coleman - Last Filed: 01/02/18 15:00> *DC/Admit/Observation/Transfer - Attestations Scribe Attestion: 01/02/18 12:35 Documentation prepared by Óscar Godfrey, acting as medical safety director for Stacey Coleman MD. <Óscar Godfrey - Last Filed: 01/02/18 12:33> - Discharge Dispostion Decision to Admit order: Yes <Stacey Coleman - Last Filed: 01/02/18 15:00> Diagnosis at time of Disposition: Cholelithiasis Qualifiers: Cholelithiasis location: gallbladder Cholecystitis presence: without cholecystitis Biliary obstruction: with biliary obstruction Qualified Code(s): K80.21 - Calculus of gallbladder without cholecystitis with obstruction - Discharge Dispostion Condition at time of disposition: Stable - Referrals Referrals: Mary Ann Rodriguez MD [Primary Care Provider] -
[2018-01-02] MEDS ORDERED: ONDANSETRON 4 MG/2 ML VIAL IVPUSH ONE (10:48)
[2018-01-02] MEDS ORDERED: SODIUM CHLORIDE 1,000 ML IV STA (10:48)
[2018-01-02] MEDS ORDERED: ACETAMINOPHEN 1000 MG/100 ML VIAL (NON FORMULARY) IVPB ONE (10:48)
[2018-01-02] MEDS ORDERED: ACETAMINOPHEN INJECTION 100 ML IVPB ONE (10:50)
[2018-01-02] MEDS ORDERED: ONDANSETRON 4 MG/2 ML VIAL ONE (10:51)
[2018-01-02 11:24] LABS: BASO % 0.7 % (0-2.0); EOS % 0.9 % (0-4.5); HEMATOCRIT 37.6 % (32.4-45.2); HEMOGLOBIN 12.6 GM/dL (10.7-15.3); LYMPH % 30.2 % (8-40); MCH 29.4 pg (25.7-33.7); MCHC 33.5 g/dl (32.0-36.0); MEAN CELL VOLUME 87.8 fl (80-96); MEAN PLT VOLUME 8.8 fl (7.5-11.1); MONO % 9.4 % (3.8-10.2); NEUT % 58.8 % (42.8-82.8); PLATELET COUNT 250 K/MM3 (134-434); RBC 4.29 M/mm3 (3.60-5.2); RDW 12.4 % (11.6-15.6)
[2018-01-02 11:25] LABS: URINE APPEARANCE CLEAR; URINE BILIRUBIN NEGATIVE (<2.0 mg/dL); URINE COLOR YELLOW; URINE GLUCOSE (UA) NEGATIVE (NEGATIVE); URINE KETONE NEGATIVE (NEGATIVE); URINE LEUK ESTERASE NEGATIVE (NEGATIVE); URINE NITRITE NEGATIVE (NEGATIVE); URINE PROTEIN NEGATIVE (NEGATIVE); URINE UROBILINOGEN NEGATIVE mg/dL (0.2-1.0)
[2018-01-02 11:50] LABS: EPI CELLS RARE /HPF (FEW); URINE BACTERIA RARE /hpf (NONE SEEN)
[2018-01-02 11:55] LABS: ALBUMIN 3.6 g/dl (3.4-5.0); ANION GAP 9 MMOL/L (8-16); BLOOD UREA NITROGEN 10 mg/dL (7-18); CALCIUM 8.3 mg/dL (8.5-10.1); CHLORIDE 105 mmol/L (98-107); CO2 25 mmol/L (21-32); LIPASE 132 U/L (73-393); POTASSIUM 4.4 mmol/L (3.5-5.1); SODIUM 139 mmol/L (136-145)
[2018-01-02 11:58] LABS: ALK PHOS 156 U/L (45-117); AMYLASE 39 U/L (25-115); BILIRUBIN,TOTAL 0.4 mg/dL (0.2-1); CREATININE 0.6 mg/dL (0.55-1.3); GLUCOSE,RANDOM 89 mg/dL (74-106); SGOT/AST 214 U/L (15-37); SGPT/ALT 159 U/L (13-61); TOT PROT 7.2 g/dl (6.4-8.2)
--- NOTE | 2018-01-02 15:59 | HP ---
CHIEF COMPLAINT: RUQ pain PCP:Dr. Tonio Nicolas HISTORY OF PRESENT ILLNESS: Patient is a 22 year old female, , 7 weeks , presented with 3 weeks of sudden-onset, severe, intermittent 10/10 RUQ pain, radiating to the right shoulder and the right flank area, accompanied by nausea. Patient reports the pain to have been present even months before but has always attributed it to her . Three weeks ago, after experiencing the severe RUQ pain, she went to a hospital in [place] where she was told to have a gallstone, to watch her diet and avoid fatty food and was given Ibuprofen for pain. Since then , patient states that she experiences the pain everyday, intermittently, lasting less than an hour, and she would take Ibuprofen for it. Last night, the pain became constant, 10/10, not relieved by Ibuprofen. This was accompanied by nausea, but patient denies vomiting, fever, chills, headache, dizziness, jaundice, diarrhea, constipation, urinary symptoms. ER course was notable for: (1)Acetaminophen 1000mg IV, Zofran 40mg IV (2)RUQ US: cholelithiasis with no sonographic evidence of acute cholecystitis (3)LFT - AST 214, ALT 159, ALP 156 Recent Travel:denies any recent travel PAST MEDICAL HISTORY: Iron deficiency anemia PAST SURGICAL HISTORY: x1 (10/2017) Social History: Smoking:nonsmoker Alcohol:non EtOH drinker Drugs: denies illicit drug use , assistant professor of nursing, lives with Family History: Mother - HTN Allergies No Known Allergies Allergy (Verified 01/02/18 10:16) HOME MEDICATIONS: Home Medications Medication Instructions Recorded NK [No Known Home Medication] 01/02/18 REVIEW OF SYSTEMS CONSTITUTIONAL: Absent: fever, chills, diaphoresis, generalized weakness, malaise, loss of appetite, weight change HEENT: Absent: rhinorrhea, nasal congestion, throat pain, throat swelling, difficulty swallowing, mouth swelling, ear pain, eye pain, visual changes CARDIOVASCULAR: Absent: chest pain, syncope, palpitations, irregular heart rate, lightheadedness , peripheral edema RESPIRATORY: Absent: cough, shortness of breath, dyspnea with exertion, orthopnea, wheezing, stridor, hemoptysis GASTROINTESTINAL:abdominal pain, nausea Absent: abdominal distension, vomiting, diarrhea, constipation, melena, hematochezia GENITOURINARY: Absent: dysuria, frequency, urgency, hesitancy, hematuria, flank pain, genital pain MUSCULOSKELETAL: Absent: myalgia, arthralgia, joint swelling, back pain, neck pain SKIN: Absent: rash, itching, pallor HEMATOLOGIC/IMMUNOLOGIC: Absent: easy bleeding, easy bruising, lymphadenopathy, frequent infections ENDOCRINE: Absent: unexplained weight gain, unexplained weight loss, heat intolerance, cold intolerance NEUROLOGIC: Absent: headache, focal weakness or paresthesias, dizziness, unsteady gait, seizure, mental status changes, bladder or bowel incontinence PSYCHIATRIC: Absent: anxiety, depression, suicidal or homicidal ideation, hallucinations. PHYSICAL EXAMINATION Vital Signs - 24 hr 01/02/18 01/02/18 01/02/18 10:13 12:42 15:55 Temperature 97.8 F 97.0 F L 98.7 F Pulse Rate 58 L Pulse Rate [ 53 L 52 L Left Radial] Respiratory 18 18 18 Rate Blood Pressure 100/61 Blood Pressure 108/64 105/66 [Right Arm] O2 Sat by Pulse 100 100 100 Oximetry (%) 01/02/18 15:57 Temperature 98.1 F Pulse Rate Pulse Rate [ 52 L Left Radial] Respiratory 18 Rate Blood Pressure Blood Pressure 105/66 [Right Arm] O2 Sat by Pulse 97 Oximetry (%) GENERAL: Awake, alert, and fully oriented, in no acute distress. HEAD: Normal with no signs of trauma. EYES: PERRLA, EOMI, sclera anicteric, conjunctiva clear. EARS, NOSE, THROAT: Ears normal, nares patent, oropharynx clear without exudates. Moist mucous membranes. NECK: Normal range of motion, supple without lymphadenopathy, JVD, or masses. LUNGS: Breath sounds equal, clear to auscultation bilaterally. HEART: Regular rate and rhythm, normal S1 and S2 without murmur, rub or gallop. ABDOMEN: Soft, mild RUQ tenderness on palpation, not distended, normoactive bowel sounds, no guarding, no rebound, no masses. No hepatomegaly or splenomegaly. Negative Grande's sign. MUSCULOSKELETAL: Normal range of motion at all joints. No bony deformities or tenderness. No CVA tenderness. UPPER EXTREMITIES: 2+ pulses, warm, well-perfused. No cyanosis. No clubbing. No peripheral edema. LOWER EXTREMITIES: 2+ pulses, warm, well-perfused. No calf tenderness. No peripheral edema. NEUROLOGICAL: Cranial nerves II-XII intact. Normal speech. Normal gait. PSYCHIATRIC: Cooperative. Good eye contact. Appropriate mood and affect. SKIN: Warm, dry, normal turgor, no rashes or lesions noted, normal capillary refill. Laboratory Results - last 24 hr 01/02/18 01/02/18 01/02/18 11:05 11:13 11:13 WBC 6.0 RBC 4.29 Hgb 12.6 Hct 37.6 MCV 87.8 D MCH 29.4 MCHC 33.5 RDW 12.4 Plt Count 250 D MPV 8.8 Absolute Neuts (auto) 3.5 Neutrophils % 58.8 Lymphocytes % 30.2 D Monocytes % 9.4 Eosinophils % 0.9 Basophils % 0.7 Nucleated RBC % 0 Sodium 139 Potassium 4.4 Chloride 105 Carbon Dioxide 25 Anion Gap 9 BUN 10 Creatinine 0.6 Creat Clearance w eGFR > 60 Random Glucose 89 Calcium 8.3 L Total Bilirubin 0.4 AST 214 H ALT 159 H Alkaline Phosphatase 156 H Total Protein 7.2 Albumin 3.6 Total Amylase 39 Lipase 132 Urine Color Urine Appearance Urine pH Ur Specific [place] Urine Protein Urine Glucose (UA) Urine Ketones Urine Blood Urine Nitrite Urine Bilirubin Urine Urobilinogen Ur Leukocyte Esterase Urine WBC (Auto) Urine RBC (Auto) Ur Epithelial Cells Urine Bacteria Urine HCG, Qual Negative 01/02/18 11:13 WBC RBC Hgb Hct MCV MCH MCHC RDW Plt Count MPV Absolute Neuts (auto) Neutrophils % Lymphocytes % Monocytes % Eosinophils % Basophils % Nucleated RBC % Sodium Potassium Chloride Carbon Dioxide Anion Gap BUN Creatinine Creat Clearance w eGFR Random Glucose Calcium Total Bilirubin AST ALT Alkaline Phosphatase Total Protein Albumin Total Amylase Lipase Urine Color Yellow Urine Appearance Clear Urine pH 6.0 Ur Specific [place] 1.023 Urine Protein Negative Urine Glucose (UA) Negative Urine Ketones Negative Urine Blood 1+ H Urine Nitrite Negative Urine Bilirubin Negative Urine Urobilinogen Negative Ur Leukocyte Esterase Negative Urine WBC (Auto) 2 Urine RBC (Auto) 8 Ur Epithelial Cells Rare Urine Bacteria Rare Urine HCG, Qual ASSESSMENT/PLAN: Patient is a 22 year old female, , 7 weeks , presented with 3 weeks of sudden-onset, severe, intermittent 10/10 RUQ pain, radiating to the right shoulder and the right flank area, accompanied by nausea. #Cholelithiasis: rule out Choledocholithiasis -patient presented with acute biliary colic and transaminitis: AST 214, ALT 159 , ALP 156 -RUQ US: Cholelithiasis with no sonographic evidence of acute cholecystitis -MRCP ordered. -NPO, IVF given -Acetaminophen 1g q6 PRN for pain -Reglan 10mg IV PRN for nausea -Surgery (Dr. Morgan) consulted. # 7 weeks -actively . -Breast pump ordered. #FEN -Not on any standing fluids -Electrolytes wnl, routine bmp monitoring -NPO #Prophylaxis -Heparin 5000units sq q8h #Disposition -admit to med-surg -full code Visit type - Emergency Visit Emergency Visit: Yes ED Registration Date: 01/02/18 Care time: The patient presented to the Emergency Department on the above date and was hospitalized for further evaluation of their emergent condition. - New Patient This patient is new to me today: Yes Date on this admission: 01/02/18 - Critical Care Critical Care patient: No Hospitalist Screening - Colonoscopy Questionnaire Colonoscopy Questionnaire: Colonoscopy Questionnaire - Patient: 50 - 75 years old and never had a screening colonoscopy: Unknown History of colon or rectal polyps, or CA: Unknown History of IBD, Crohn's disease or UC: Unknown History of abdominal radiation therapy as a child: Unknown - Relative: 1 with colon or rectal CA, or polyps at age 60 or younger: Unknown Colon or rectal CA diagnosed at age 45 or younger: Unknown Multiple relatives with colon or rectal CA: Unknown - Outcome: Screening Result: Negative Screen
[2018-01-02] MEDS ORDERED: METOCLOPRAMIDE HCL INJECTION 10 MG/2 ML VIAL IVPUSH PRN (16:01)
[2018-01-02] MEDS ORDERED: ACETAMINOPHEN 1000 MG/100 ML VIAL (NON FORMULARY) IVPB PRN (16:01)
--- NOTE | 2018-01-02 16:03 | PN ---
Teaching Attending Note Name of Resident: Fide Davis ATTENDING PHYSICIAN STATEMENT I saw and evaluated the patient. I reviewed the resident's note and discussed the case with the resident. I agree with the resident's findings and plan as documented. SUBJECTIVE:22yo F whom is 7 weeks post- presenting with RUQ with radiation to the shoulder. INtermittent for the past 9 months which she initially contributed to being but has been increasing in intensity over the past few weeks. went to a hospital in [place] last week who told her she had gallstones. was told to avoid fried,fatty foods and given motrin and told to return if pain persists. she intially had relief with motrin but now worsening and related to eating anything even vegetables. pain was severe last night with no relief to this AM which prompted her back to the ER. currently the pain is controlled but was worse during the u/s. assoc with nausea. denies CP, SOB, fever, chills, V/C/D had no complications during . had scheduled with no complications. currently OBJECTIVE: Last Vital Signs Temp Pulse Resp BP Pulse Ox 98.1 F 52 L 18 105/66 97 01/02/18 15:57 01/02/18 15:57 01/02/18 15:57 01/02/18 15:57 01/02/18 15:57 General NAD CV S1 S2 RRR no murmur/rub/gallop Lungs CTA B/L no wheezing/rales/rhonchi Abdomen soft NT/ND negative acevedo sign normoactive BS ASSESSMENT AND PLAN: 22yo F whom is 7 weeks presenting to the ER with RUQ pain and found to have cholelithasis 1. Acute biliary colic with increased trasaminases- will need to r/o choledocholithasis. Cont NPO, IVF, pain and nausea control. MRCP ordered. surgery consulted. will ultimately require cholecystectomy due to repeated episodes. 2. post- 7 weeks- actively . breastpump to bedside. 3. DVT ppx- hep sq. pt is high risk due to recent .
--- NOTE | 2018-01-02 17:27 | CONSULT ---
Consult Consult Specialty:: General Surgery Reason for Consultation:: symptiomatic cholelithiasis - History of Present Illness Chief Complaint: Abdominal Pain History of Present Illness: 22 yo female PMH 7 weeks , presented with 3 weeks of sudden-onset, severe, intermittent 10/10 RUQ pain, radiating to the right shoulder and the right flank area, accompanied by nausea. Patient reports the pain to have been present even months before but has always attributed it to her . Three weeks ago, after experiencing the severe RUQ pain, she went to a hospital in [place] where she was told to have a gallstone, to watch her diet and avoid fatty food and was given Ibuprofen for pain. Since then, patient states that she experiences the pain everyday, intermittently, lasting less than an hour, and she would take Ibuprofen for it. Last night, the pain became constant, 10/10 , not relieved by Ibuprofen. This was accompanied by nausea, but patient denies vomiting, fever, chills, headache, dizziness, jaundice, diarrhea, constipation, urinary symptoms. We were asked to assess. - History Source History Provided By: Patient, Medical Record Limitations to Obtaining History: No Limitations - Past Medical History ...LMP: 02/07/17 - Alcohol/Substance Use Hx Alcohol Use: No - Smoking History Smoking history: Never smoked Have you smoked in the past 12 months: No - Social History History of Recent Travel: No Home Medications - Allergies Allergies/Adverse Reactions: Allergies Allergy/AdvReac Type Severity Reaction Status Date / Time No Known Allergies Allergy Verified 01/02/18 10:16 - Home Medications Home Medications: Ambulatory Orders Ibuprofen 600 mg PO Q4HWA 01/03/18 Norethindrone [Jolivette] 0.35 mg PO DAILY 01/03/18 Review of Systems - Review of Systems Constitutional: denies: Chills, Fever Eyes: denies: Blind Spots, Recent Change in Vision HENT: denies: Difficult Swallowing, Throat Pain Neck: denies: Decreased ROM, Pain on Movement, Tenderness Cardiovascular: denies: Chest Pain, Palpitations Respiratory: denies: Cough, SOB Gastrointestinal: reports: Abdominal Pain, Indigestion. denies: Constipation, Diarrhea Genitourinary: denies: Burning, Discharge Breasts: reports: No Symptoms Reported. denies: Pain Musculoskeletal: denies: Muscle Pain, Muscle Weakness Integumentary: denies: Pruritis, Rash, Wound Neurological: denies: Seizure, Syncope, Tremors Endocrine: denies: Unexplained Weight Gain, Unexplained Weight Loss Hematology/Lymphatic: denies: Easily Bruised, Excessive Bleeding Psychiatric: denies: Anxiety, Depression Physical Exam Vital Signs: Vital Signs Temperature 98.1 F 01/02/18 15:57 Pulse Rate 52 L 01/02/18 15:57 Respiratory Rate 18 01/02/18 15:57 Blood Pressure 105/66 01/02/18 15:57 O2 Sat by Pulse Oximetry (%) 97 01/02/18 15:57 Constitutional: Yes: Well Nourished, No Distress, Calm Eyes: Yes: Conjunctiva Clear, EOM Intact HENT: Yes: Atraumatic, Normocephalic Neck: Yes: Supple, Trachea Midline Cardiovascular: Yes: Regular Rate and Rhythm, S1, S2 Respiratory: No: Regular, CTA Bilaterally Gastrointestinal: Yes: Normal Bowel Sounds, Soft, Tenderness (RUQ, - murphys), Tenderness, Rebound ...Rectal Exam: Yes: Deferred Renal/: No: CVA Tenderness - Left, CVA Tenderness - Right Musculoskeletal: No: Muscle Pain, Muscle Weakness Extremities: No: Cool, Cyanosis Edema: No Peripheral Pulses WNL: Yes Integumentary: No: Jaundice, Laceration, Rash, Skin Tear Neurological: Yes: Alert, Oriented Psychiatric: Yes: Alert, Oriented Labs: CBC, BMP 01/02/18 11:13 01/02/18 11:13 Imaging - Results Cat Scan: Report Reviewed (cholelithiasis), Image Reviewed Ultrasound: Report Reviewed, Image Reviewed (cholelithiasis small stone normal CBD) Problem List - Problems (1) Biliary colic symptom Assessment/Plan: 22 yo female with symptomatic cholelithiasis no acute cholecystitis NPO and IVF hydrtaion Adequate analgesia Discussed with patient risks, benefits and alternatives of laparoscopic possible open Cholecystectomy, including but not limited to bleeding, infection , injury to adjacent structures, leak or injury, incisional hernia, need for further procedures, ; alternatives include antibiotics, delayed or no surgery - risks of this include failure of nonoperative therapy, cholangititis, pancreatitis, sepsis, recurrence, . Patient desires to proceed with operation - will take to OR for above. Informed consent signed for same. Thank you for the opportunity to participate in the care of this patient. Code(s): K80.50 - CALCULUS OF BILE DUCT W/O CHOLANGITIS OR CHOLECYST W/O OBST (2) Cholelithiasis Code(s): K80.20 - CALCULUS OF GALLBLADDER W/O CHOLECYSTITIS W/O OBSTRUCTION Qualifiers: Cholelithiasis location: gallbladder Cholecystitis presence: without cholecystitis Biliary obstruction: with biliary obstruction Qualified Code(s ): K80.21 - Calculus of gallbladder without cholecystitis with obstruction (3) Hyperemesis Code(s): R11.10 - VOMITING, UNSPECIFIED (4) Abdominal pain in female Code(s): R10.9 - UNSPECIFIED ABDOMINAL PAIN
[2018-01-02 18:51] VITALS: BMI 26.3
[2018-01-02] MEDS: SODIUM CHLORIDE 1,000 ML IV SCH (21:39)
[2018-01-02] MEDS: HEPARIN NA (PORCINE) 5,000 UNITS/ML 1ML VIAL SQ SCH (21:39)
[2018-01-03] MEDS: HEPARIN NA (PORCINE) 5,000 UNITS/ML 1ML VIAL SQ SCH ×2 (06:50→22:31)
[2018-01-03 06:52] LABS: BASO % 1.2 % (0-2.0); EOS % 2.7 % (0-4.5); HEMATOCRIT 37.2 % (32.4-45.2); HEMOGLOBIN 12.2 GM/dL (10.7-15.3); LYMPH % 52.4 % (8-40); MCHC 32.8 g/dl (32.0-36.0); MEAN CELL VOLUME 88.4 fl (80-96); MEAN PLT VOLUME 8.4 fl (7.5-11.1); MONO % 8.6 % (3.8-10.2); NEUT % 35.1 % (42.8-82.8); PLATELET COUNT 209 K/MM3 (134-434); RBC 4.21 M/mm3 (3.60-5.2); RDW 12.4 % (11.6-15.6); WHITE BLOOD COUNT 4.2 K/mm3 (4.0-10.0)
[2018-01-03 07:32] LABS: ALBUMIN 3.4 g/dl (3.4-5.0); ANION GAP 7 MMOL/L (8-16); BLOOD UREA NITROGEN 8 mg/dL (7-18); CALCIUM 8.8 mg/dL (8.5-10.1); CHLORIDE 109 mmol/L (98-107); CO2 26 mmol/L (21-32); GLUCOSE,RANDOM 82 mg/dL (74-106); MAGNESIUM 1.7 mg/dL (1.8-2.4); POTASSIUM 4.1 mmol/L (3.5-5.1); SODIUM 142 mmol/L (136-145)
[2018-01-03 07:37] LABS: ALK PHOS 138 U/L (45-117); BILIRUBIN,TOTAL 0.4 mg/dL (0.2-1); CREATININE 0.6 mg/dL (0.55-1.3); PHOSPHOROUS 4.3 mg/dL (2.5-4.9); SGOT/AST 44 U/L (15-37); SGPT/ALT 88 U/L (13-61); TOT PROT 6.2 g/dl (6.4-8.2)
[2018-01-03] MEDS: SODIUM CHLORIDE 1,000 ML IV SCH (11:03)
[2018-01-03] MEDS ORDERED: ROCURONIUM BROMIDE 50 MG/5 ML VIAL ONE (14:24)
[2018-01-03] MEDS ORDERED: PROPOFOL 20 ML ONE (14:24)
[2018-01-03] MEDS ORDERED: MIDAZOLAM HCL 2 MG/2 ML SINGLE DOSE VIAL ONE (14:24)
[2018-01-03] MEDS ORDERED: ONDANSETRON 4 MG/2 ML VIAL IVPUSH PRN (14:31)
[2018-01-03] MEDS ORDERED: PROMETHAZINE HCL 25 MG/1 ML VIAL IVPUSH PRN (14:31)
[2018-01-03] MEDS ORDERED: LACTATED RINGERS SOLUTION 1,000 ML IV SCH (14:45)
[2018-01-03] MEDS ORDERED: LIDOCAINE HCL/PF 2% SDV 5ML VIAL ONE (15:06)
[2018-01-03] MEDS ORDERED: SODIUM CHLORIDE 0.9% P/F 10 ML VIAL IJ ONE (15:16)
[2018-01-03] MEDS ORDERED: ceFAZolin SODIUM 1 GM VIAL ONE (15:16)
[2018-01-03] MEDS ORDERED: ceFAZolin SODIUM 1 GM VIAL IVPB ONE (15:17)
[2018-01-03] MEDS ORDERED: fentaNYL CITRATE 250 MCG/5 ML VIAL ONE (15:17)
[2018-01-03] MEDS ORDERED: DEXAMETHASONE SOD PHOSPHATE 4 MG/1 ML VIAL ONE (15:23)
[2018-01-03] MEDS ORDERED: NEOSTIGMINE METHYLSULFATE 0.5 MG/ML - 10 ML MDV ONE (15:47)
[2018-01-03] MEDS ORDERED: GLYCOPYRROLATE 0.2 MG/1 ML VIAL ONE (15:47)
[2018-01-03] MEDS ORDERED: BUPIVACAINE HCL/PF 0.25% (2.5MG/ML) 10 ML VIAL IJ ONE ×2 (15:50)
--- NOTE | 2018-01-03 16:08 | OP ---
Operative Note - Note: Operative Date: 01/03/18 Pre-Operative Diagnosis: Symptomatic Cholelithiasis Operation: Laparoscopic Cholecystectomy Findings: Thin walled distended gallbladder with small stones palpated, critical view identified. all counts correct Post-Operative Diagnosis: Same as Pre-op Surgeon: Yuriy Morgan Dispatch Machine Runner: Luis Manuel Morin (Betsy Morin MS3) Anesthesia: General, Local (Marcaine 0.25% 20ml) Specimens Removed: Gallbladder with stones Estimated Blood Loss (mls): 5 Fluid Volume Replaced (mls): 500 Operative Report Dictated: Yes
[2018-01-03] MEDS ORDERED: METOCLOPRAMIDE HCL INJECTION 10 MG/2 ML VIAL IVPUSH PRN (16:48)
[2018-01-03] MEDS ORDERED: SODIUM CHLORIDE 1,000 ML IV SCH (16:48)
--- NOTE | 2018-01-03 16:49 | PN ---
Teaching Attending Note Name of Resident: Fide Davis ATTENDING PHYSICIAN STATEMENT I saw and evaluated the patient. I reviewed the resident's note and discussed the case with the resident. I agree with the resident's findings and plan as documented. SUBJECTIVE:abdominal pain resolved. denies CP, SOB, fever, chills, N/V/C/D OBJECTIVE: Last Vital Signs Temp Pulse Resp BP Pulse Ox 98.4 F 74 18 121/64 98 01/03/18 10:31 01/03/18 10:31 01/03/18 10:31 01/03/18 10:31 01/03/18 09:00 General NAD Abdomen soft NT/ND negative acevedo sign normoactive BS ASSESSMENT AND PLAN: 22yo F whom is 7 weeks presenting to the ER with RUQ pain and found to have cholelithasis 1. Acute biliary colic with increased trasaminases- clinically improved. transaminitis trending down. MRCP negative for choledocholithasis. NPO for laprascopic cholecystectomy. cont IVF and pain control. 2. post- 7 weeks- actively breast feeding. breastpump to bedside. 3. DVT ppx- hep sq. 4. d/c planning in the AM if no complications.
--- NOTE | 2018-01-03 17:20 | PN ---
Physical Exam: SUBJECTIVE: Patient seen and examined at bedside this morning. No acute events overnight. Patient has not been complaining of abdominal pain. OBJECTIVE: Vital Signs Period Temp Pulse Resp BP Sys/Aldana Pulse Ox Last 24 Hr 98.1 F-98.4 F 54-74 16-18 103-129/51-82 98-98 GENERAL: Awake, alert, and fully oriented, in no acute distress. HEAD: Normal with no signs of trauma. EYES: PERRLA, EOMI, sclera anicteric, conjunctiva clear. EARS, NOSE, THROAT: Ears normal, nares patent, oropharynx clear without exudates. Moist mucous membranes. NECK: Normal range of motion, supple without lymphadenopathy, JVD, or masses. LUNGS: Breath sounds equal, clear to auscultation bilaterally. HEART: Regular rate and rhythm, normal S1 and S2 without murmur, rub or gallop. ABDOMEN: Soft, nontender, not distended, normoactive bowel sounds. MUSCULOSKELETAL: Normal range of motion at all joints. No bony deformities or tenderness. No CVA tenderness. UPPER EXTREMITIES: 2+ pulses, warm, well-perfused. No cyanosis. No clubbing. No peripheral edema. LOWER EXTREMITIES: 2+ pulses, warm, well-perfused. No calf tenderness. No peripheral edema. NEUROLOGICAL: Cranial nerves II-XII intact. Normal speech. Normal gait. PSYCHIATRIC: Cooperative. Good eye contact. Appropriate mood and affect. SKIN: Warm, dry, normal turgor, no rashes or lesions noted, normal capillary refill. Laboratory Results - last 24 hr 01/03/18 01/03/18 06:30 06:30 WBC 4.2 RBC 4.21 Hgb 12.2 Hct 37.2 MCV 88.4 MCH 29.0 MCHC 32.8 RDW 12.4 Plt Count 209 MPV 8.4 Absolute Neuts (auto) 1.5 Neutrophils % 35.1 L D Lymphocytes % 52.4 H D Monocytes % 8.6 Eosinophils % 2.7 D Basophils % 1.2 Nucleated RBC % 0 Sodium 142 Potassium 4.1 Chloride 109 H Carbon Dioxide 26 Anion Gap 7 L BUN 8 Creatinine 0.6 Creat Clearance w eGFR > 60 Random Glucose 82 Calcium 8.8 Phosphorus 4.3 Magnesium 1.7 L Total Bilirubin 0.4 AST 44 H ALT 88 H Alkaline Phosphatase 138 H Total Protein 6.2 L Albumin 3.4 Active Medications Generic Name Dose Route Start Last Admin Trade Name Freq PRN Reason Stop Dose Admin Acetaminophen 1,000 mg 01/03/18 16:48 Ofirmev Injection - IVPB Q6H PRN PAIN LEVEL 6-10 Heparin Sodium (Porcine) 5,000 unit 01/03/18 22:00 Heparin - SQ TID TALHA Sodium Chloride 1,000 mls @ 75 mls/hr 01/03/18 16:48 Normal Saline - IV ASDIR TALHA Metoclopramide HCl 10 mg 01/03/18 16:48 Reglan Injection - IVPUSH Q8H PRN NAUSEA AND/OR VOMITING Imaging -MRI: Cholelithiasis with no evidence of cholecystitis. No choledocholithiasis. No pancreaticobiliary ductal dilatation. -RUQ US: Cholelithiasis with no sonographic evidence of acute cholecystitis ASSESSMENT/PLAN: Patient is a 22 year old female, , 7 weeks , presented with 3 weeks of sudden-onset, severe, intermittent 10/10 RUQ pain, radiating to the right shoulder and the right flank area, accompanied by nausea. #Cholelithiasis: rule out Choledocholithiasis -MRI: Cholelithiasis with no evidence of cholecystitis. No choledocholithiasis. No pancreaticobiliary ductal dilatation. -Transaminitis improved. AST 44, ALT 88, ALP 138 -RUQ US: Cholelithiasis with no sonographic evidence of acute cholecystitis -Surgery (Dr. Morgan) consulted. -POD 0 s/p Laparoscopic cholecystectomy -pain meds as per anesthesiology # 7 weeks -actively . -Breast pump ordered. #FEN -Not on any standing fluids -Electrolytes wnl, routine bmp monitoring -NPO; may resume regular diet as per surgery #Prophylaxis -Heparin 5000units sq q8h #Disposition -admit to med-surg -For discharge tomorrow if with no other concerns. Visit type - Emergency Visit Emergency Visit: Yes ED Registration Date: 01/02/18 Care time: The patient presented to the Emergency Department on the above date and was hospitalized for further evaluation of their emergent condition. - New Patient This patient is new to me today: Yes Date on this admission: 01/03/18 - Critical Care Critical Care patient: No
[2018-01-03] MEDS: ACETAMINOPHEN 1000 MG/100 ML VIAL (NON FORMULARY) IVPB PRN (17:57)
[2018-01-04] MEDS: ACETAMINOPHEN 1000 MG/100 ML VIAL (NON FORMULARY) IVPB PRN ×2 (00:16→06:32)
--- NOTE | 2018-01-04 04:58 | PN ---
Progress Note, Physician Chief Complaint: Abdominal pain History of Present Illness: 22 yo female PMH 7 weeks , presented with 3 weeks of sudden-onset, severe, intermittent 10/10 RUQ pain, radiating to the right shoulder and the right flank area, accompanied by nausea. stable post operativley. No complaints. - Current Medication List Current Medications: Active Medications Acetaminophen (Ofirmev Injection -) 1,000 mg IVPB Q6H PRN PRN Reason: PAIN LEVEL 6-10 Last Admin: 01/04/18 00:16 Dose: 1,000 mg Heparin Sodium (Porcine) (Heparin -) 5,000 unit SQ TID [facility] Last Admin: 01/03/18 22:31 Dose: 5,000 unit Sodium Chloride (Normal Saline -) 1,000 mls @ 75 mls/hr IV ASDIR TALHA Last Admin: 01/03/18 17:58 Dose: 75 mls/hr Metoclopramide HCl (Reglan Injection -) 10 mg IVPUSH Q8H PRN PRN Reason: NAUSEA AND/OR VOMITING - Objective Vital Signs: Vital Signs Temperature 98.3 F 01/04/18 02:00 Pulse Rate 58 L 01/04/18 02:00 Respiratory Rate 18 01/04/18 02:00 Blood Pressure 105/63 01/04/18 02:00 O2 Sat by Pulse Oximetry (%) 98 01/03/18 21:00 Vital Signs Period Temp Pulse Resp BP Sys/Aldana Pulse Ox Last 24 Hr 97.1 F-98.6 F 58-98 16-20 103-133/51-78 98-100 Constitutional: Yes: Well Nourished, No Distress, Calm Eyes: Yes: Conjunctiva Clear, EOM Intact HENT: Yes: Atraumatic, Normocephalic Neck: Yes: Supple, Trachea Midline Cardiovascular: Yes: Regular Rate and Rhythm, S1, S2 Respiratory: Yes: Regular, CTA Bilaterally Gastrointestinal: Yes: Normal Bowel Sounds, Soft, Tenderness (perimubilical) Genitourinary: No: CVA Tenderness - Left, CVA Tenderness - Right Musculoskeletal: No: Muscle Pain, Muscle Weakness Extremities: No: Cool, Cyanosis Edema: No Peripheral Pulses WNL: Yes Peripheral Pulses: Left Radial: 2+, Right Radial: 2+, Left Doralis Pedis: 2+, Right Dorsalis Pedis: 2+ Wound/Incision: Yes: Clean/Dry, Well Approximated, Dressing Dry and Intact Neurological: Yes: Alert, Oriented Psychiatric: Yes: Alert, Oriented Labs: CBC, BMP 01/03/18 06:30 01/03/18 06:30 Problem List - Problems (1) Biliary colic symptom Assessment/Plan: 22 yo female with symptomatic cholelithiasis no acute cholecystitis POD#1 s/p Lap Cholecystectomy Diet as tolerated OOB encourage incentive spirometery adequate analgesia consider D/C home Code(s): K80.50 - CALCULUS OF BILE DUCT W/O CHOLANGITIS OR CHOLECYST W/O OBST (2) Cholelithiasis Code(s): K80.20 - CALCULUS OF GALLBLADDER W/O CHOLECYSTITIS W/O OBSTRUCTION Qualifiers: Cholelithiasis location: gallbladder Cholecystitis presence: without cholecystitis Biliary obstruction: with biliary obstruction Qualified Code(s ): K80.21 - Calculus of gallbladder without cholecystitis with obstruction (3) Hyperemesis Code(s): R11.10 - VOMITING, UNSPECIFIED (4) Abdominal pain in female Code(s): R10.9 - UNSPECIFIED ABDOMINAL PAIN
[2018-01-04] MEDS: HEPARIN NA (PORCINE) 5,000 UNITS/ML 1ML VIAL SQ SCH ×2 (06:10→14:54)
[2018-01-04] MEDS ORDERED: PT OWN MED DRAWER 7, Y5N ONE (06:39)
--- NOTE | 2018-01-04 08:51 | PN ---
Progress Note (short form) - Note Progress Note: Anesthesia POD#1 S/P Lap Cholecystectomy under GA VSS,some pain,no N/V.Ambulating well. Selena Rock MD.
--- NOTE | 2018-01-04 12:19 | PN ---
Teaching Attending Note Name of Resident: Fide Davis ATTENDING PHYSICIAN STATEMENT I saw and evaluated the patient. I reviewed the resident's note and discussed the case with the resident. I agree with the resident's findings and plan as documented. SUBJECTIVE:some incision pain. tolerating liquid diet. denies CP, SOB, fever, chills, N/V/C/D, no flatus OBJECTIVE: Last Vital Signs Temp Pulse Resp BP Pulse Ox 98.3 F 86 18 110/56 98 01/04/18 05:58 01/04/18 05:58 01/04/18 05:58 01/04/18 05:58 01/03/18 21:00 General NAD Abdomen soft bandages seen c/d/i. mild surrounding tenderness ASSESSMENT AND PLAN: 22yo F whom is 7 weeks presenting to the ER with RUQ pain and found to have cholelithasis 1. Acute biliary colic with increased trasaminases- s/p laprascopic cholecystectomy. tolerated surgery well. tolerating liquid diet. will advance to regular. re-evaluate that passing gas. can cont with tylenol prn pain and f/ u with surgeon as outpatient. 2. post- 7 weeks- actively breast feeding. breastpump to bedside. 3. DVT ppx- hep sq. 4. d/c home if tolerates lunch and passes gas
[2018-01-04 15:14] VITALS: BP 129/65; PULSE 72; TEMP 98
--- NOTE | 2018-01-04 17:22 | DS ---
Physical Exam: SUBJECTIVE: Patient seen and examined at bedside this morning. No acute events overnight. Patient was able tolerate regular diet with no nausea, vomiting or abdominal pain. OBJECTIVE: Vital Signs Period Temp Pulse Resp BP Sys/Aldana Pulse Ox Last 24 Hr 97.1 F-98.6 F 56-89 18-20 105-129/56-77 98-100 PHYSICAL EXAM GENERAL: The patient is awake, alert, and fully oriented, in no acute distress. HEAD: Normal with no signs of trauma. EYES: PERRLA, EOMI, sclera anicteric, conjunctiva clear. ENT: Ears normal, nares patent, oropharynx clear without exudates, moist mucous membranes. NECK: Trachea midline, full range of motion, supple. LUNGS: Breath sounds equal, clear to auscultation bilaterally,. HEART: Regular rate and rhythm, S1, S2 without murmur, rub or gallop. ABDOMEN: Soft, +mild tenderness on surgical site, nondistended, normoactive bowel sounds. EXTREMITIES: 2+ pulses, warm, well-perfused, no edema. NEUROLOGICAL: Cranial nerves II through XII grossly intact. Normal speech, gait not observed. PSYCH: Normal mood, normal affect. SKIN: Warm, dry, normal turgor, no rashes or lesions noted. LABS CBC, BMP 01/03/18 06:30 01/03/18 06:30 Imaging -MRI: Cholelithiasis with no evidence of cholecystitis. No choledocholithiasis. No pancreaticobiliary ductal dilatation. -RUQ US: Cholelithiasis with no sonographic evidence of acute cholecystitis HOSPITAL COURSE: Date of Admission:01/02/18 Date of Discharge: 01/04/18 Patient is a 22 year old female, , 7 weeks , presented with 3 weeks of sudden-onset, severe, intermittent 10/10 RUQ pain, radiating to the right shoulder and the right flank area, accompanied by nausea. Surgery was consulted. RUQ ultrasound and MRI of the abdomen done and revealed cholelithiasis with no cholecystitis or choledocholithiasis. Patient underwent lap cholecystectomy and tolerated the procedure well. Patient was discharged with instructions to follow-up with Dr. Morgan. Minutes to complete discharge: 45 Discharge Summary Reason For Visit: CHOLELITHIASIS Condition: Improved - Instructions Diet, Activity, Other Instructions: Postoperative instructions: You had a laparoscopic cholecystectomy on 01/03/[address] Yuriy Morgan of [facility]. Activity: Resume your usual activities gradually, but no heavy exertion or lifting more than 10-15 pounds for 1 month. Remove dressings 48 hours after surgery; sticky tapes underneath will fall off by themselves. You may shower daily starting then, just pat the incision areas dry. No bath or swimming until skin incisions have healed. Eat lightly at first, but advance to your usual diet as tolerated. Pain: For pain, you may use and alternate Tylenol (acetaminophen) 1-2 pills and/ or ibuprofen 200 mg (1-3 pills) every 6 hours each as needed; this means that you can take one OR the other at 3-hour intervals. If you are prescribed a Tylenol/narcotic combination for severe pain, use it instead of plain Tylenol as needed and switch back when your pain starts decreasing. Do not take more than 4000mg of acetaminophen in a day. Take medications as prescribed or indicated on the labeling. Follow-up: Call Dr. Morgan' office at [phone] to make your postop appointment (Sunday in approximately 2 weeks after surgery). Clinic is held in the [facility] on the first floor of [facility]. Call the office if you have: * increasing pain not responsive to pain medication * fever of 101F or higher * vomiting * unusual or increasing bleeding or drainage from wounds * increasing redness or swelling at wound sites * inability to urinate Also, see your primary medical doctor within 1-2 weeks. Referrals: Yuriy Morgan MD [Staff Physician] - Mary Ann Rodriguez MD [Primary Care Provider] - Disposition: HOME - Home Medications Comprehensive Discharge Medication List: Ambulatory Orders Ibuprofen 600 mg PO Q4HWA 01/03/18 Norethindrone [Jolivette] 0.35 mg PO DAILY 01/03/18 This patient is new to me today: Yes Date on this admission: 01/05/18 Emergency Visit: Yes ED Registration Date: 01/02/18 Care time: The patient presented to the Emergency Department on the above date and was hospitalized for further evaluation of their emergent condition. Critical Care patient: No - Discharge Referral Referred to [facility] Med P.C.: No
--- NOTE | 2018-01-07 16:26 | PATH ---
Surgical Pathology Report Patient Name: DEEPIKA BARR [facility]. Rec. #: [id number] /Age/Gender: 1995 (Age: 22) / F Account: [id number] Location: [address] [place] [address]/[facility] Taken: 01/03/2018 Received: 01/04/2018 Reported: 01/07/2018 Physicians: Love Tabares M.D. Specimen(s) Received GALLBLADDER Clinical History Symptomatic cholelithiasis Final Diagnosis GALLBLADDER, CHOLECYSTECTOMY: CHRONIC CHOLECYSTITIS AND CHOLELITHIASIS. Electronically Signed Eliza Huerta M.D. Gross Description Received in formalin, labeled "gallbladder," is a 7.9 x 2.5 x 2.2 cm. gallbladder with a 0.2 cm. in length portion of cystic duct attached. The outer surface is cordova green and varies from smooth to shaggy. The lumen contains green, tenacious bile as well as abundant yellow, spherical choleliths ranging from 0.1-0.4 cm in greatest dimension. The mucosa is dark green and velvety. The wall of the gallbladder measures 0.1 cm. in thickness. Railway Track Worker sections are submitted in one cassette. 01/04/201801/04/2018
== END 2018-01-04 17:03 | disposition home or self-care (01) | DRG 263 ==
LOC: JER 10:10 → JERBED 15:00 → OBSVTOIN 16:01 → J6S 18:00
PROVIDERS: ADMIT Internal Medicine; ATTEND Internal Medicine
PROC: 0FT44ZZ Resection of Gallbladder, Percutaneous Endoscopic Approach (ICD-10-PCS; principal; 2018-01-03 15:00)
DX: K80.20 Calculus of gallbladder without cholecystitis without obstruction (principal)
CPT/HCPCS: 36415; 74181-TC; 76705-TC; 80053; 81003; 81015; 82150; 83690; 83735; 84100; 84703; 85025; 87086; 88304-TC; 94760; 99284-25; G0378; J0131; J1644; J7030